=== PATIENT | male | born 1955 | race Caucasian/White ===

== ENCOUNTER 2016-12-29 18:44 | Emergency (ER) | payer MEDICARE, MEDICAID ==
[~2016-12-29] VITALS: Ht 185.4 cm; Wt 81.1 kg
[~2016-12-29 18:44] MED LIST: DIPH25TA52 PO
[2016-12-29] MEDS ORDERED: ONDANSETRON ODT 4 MG ONE (19:18)
[2016-12-29] MEDS ORDERED: LORazepam 1MG TABLET ONE ×2 (19:18→20:02)
[2016-12-29] MEDS ORDERED: LORazepam 1MG TABLET PO ONE ×2 (19:30→20:00)
[2016-12-29] MEDS ORDERED: ONDANSETRON ODT 4 MG PO ONE (19:30)
[2016-12-29 19:32] LABS: HEMATOCRIT 42.7 % (39.2-51.8); HEMOGLOBIN 14.9 g/dL (13.7-18.0); WHITE BLOOD COUNT 6.1 x10^3/uL (3.4-10)
[2016-12-29 19:39] LABS: ASPARTATE AMINO TRANSFERASE 293 U/L (15-37); BLOOD UREA NITROGEN 12 mg/dL (7-18)
[2016-12-29 20:33] VITALS: BP 130/77
== END 2016-12-29 20:36 | disposition home or self-care (01) ==
LOC: ED 20:27
DX: F10.239 Alcohol dependence with withdrawal, unspecified (principal); K70.10 Alcoholic hepatitis without ascites; F19.20 Other psychoactive substance dependence, uncomplicated; B18.2 Chronic viral hepatitis C
CPT/HCPCS: 36415; 80053; 80307; 85025; 99284; Q0162; G0479

== ENCOUNTER 2017-01-19 17:06 | Emergency (ER) | payer MEDICARE, MEDICAID ==
[2017-01-19] MEDS ORDERED: SODIUM CHLORIDE FLUSH 10ML SYR IVF ONE (18:30)
[2017-01-19 19:07] LABS: BLOOD UREA NITROGEN 10 mg/dL (7-18)
[2017-01-19 19:08] LABS: HEMATOCRIT 44.3 % (39.2-51.8); HEMOGLOBIN 15.2 g/dL (13.7-18.0); WHITE BLOOD COUNT 5.2 x10^3/uL (3.4-10)
[2017-01-19 19:12] LABS: ASPARTATE AMINO TRANSFERASE 225 U/L (15-37)
[2017-01-19] MEDS ORDERED: LORazepam 2 MG/ML, 1ML ONE (19:15)
[2017-01-19] MEDS ORDERED: LORazepam 2 MG/ML, 1ML IM ONE (20:00)
[2017-01-19 20:45] VITALS: BP 147/89
== END 2017-01-19 21:16 | disposition home or self-care (01) ==
LOC: ED 17:25
DX: F10.220 Alcohol dependence with intoxication, uncomplicated (principal); G89.29 Other chronic pain; R10.9 Unspecified abdominal pain
CPT/HCPCS: 36415; 74020; 80053; 83690; 85025; 85610; 96372; 99285; J2060

== ENCOUNTER 2017-09-05 01:00 | Emergency (ER) | payer MEDICARE, MEDICAID ==
[~2017-09-05] VITALS: Ht 188 cm; Wt 90.0 kg
[2017-09-05 03:01] VITALS: BP 146/90
== END 2017-09-05 03:03 | disposition home or self-care (01) ==
LOC: ED 01:35
DX: F10.229 Alcohol dependence with intoxication, unspecified (principal); Z00.00 Encounter for general adult medical examination without abnormal findings
CPT/HCPCS: 99283

== ENCOUNTER 2017-09-05 17:25 | Emergency (ER) | payer MEDICARE, MEDICAID ==
[~2017-09-05] VITALS: Ht 185.4 cm; Wt 78.0 kg
[2017-09-05] MEDS ORDERED: THIAMINE 100MG TABLET PO ONE (18:00)
[2017-09-05 18:37] LABS: ALANINE AMINOTRANSFERASE 84 U/L (12-78); ALBUMIN 3.1 g/dL (3.4-5.0); ANION GAP 8 mmol/L (5-15); CALCIUM 8.1 mg/dL (8.5-10.1); CHLORIDE 104 mmol/L (98-107); CREATININE 0.79 mg/dL (0.7-1.3)
[2017-09-05 18:42] LABS: ALKALINE PHOSPHATASE 155 U/L (45-117); BILIRUBIN,TOTAL 2.7 mg/dL (0.2-1.0); TOTAL PROTEIN 7.7 g/dL (6.4-8.2)
[2017-09-05 19:07] LABS: BASOPHILS # (AUTO) 0.01 x10^3/uL (0-0.1); BASOPHILS % (AUTO) 0 % (0-1); EOSINOPHILS # (AUTO) 0.03 x10^3/uL (0-0.4); EOSINOPHILS % (AUTO) 1 % (1-7); LYMPHOCYTES # (AUTO) 0.86 x10^3/uL (1-3.4); LYMPHOCYTES % (AUTO) 29 % (22-44); MD SCAN; MEAN CORPUSCULAR HEMOGLOBIN 27.8 pg (27.5-34.5); MEAN CORPUSCULAR HGB CONC 33.9 g/dL (33.2-36.2); MEAN CORPUSCULAR VOLUME 81.8 fL (81-97); MEAN PLATELET VOLUME 7.4 fL (7.4-10.4); MONOCYTES # (AUTO) 0.19 x10^3/uL (0.2-0.8); MONOCYTES % (AUTO) 6 % (2-9); NEUTROPHILS # (AUTO) 1.87 x10^3/uL (1.8-6.8); NEUTROPHILS % (AUTO) 63 % (42-75); PLATELET COUNT 56 x10^3/uL (130-400); RED CELL DISTRIBUTION WIDTH 18.3 % (9.4-14.8)
[2017-09-05 19:15] LABS: HEMOGRAM NOTE RECHECKED
[2017-09-05 21:24] VITALS: BP 110/67
== END 2017-09-05 21:27 | disposition home or self-care (01) ==
LOC: ED 19:00
DX: F10.120 Alcohol abuse with intoxication, uncomplicated (principal)
CPT/HCPCS: 36415; 80053; 80307; 85025; 99284

== ENCOUNTER 2018-09-27 11:07 | Inpatient (IN) | payer MEDICARE, MEDICAID ==
[~2018-09-27] VITALS: Ht 193 cm; Wt 80.8 kg
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
--- NOTE | 2018-09-27 11:45 | NUR ---
PA AT BEDSIDE.
[2018-09-27] MEDS ORDERED: SODIUM CHLORIDE FLUSH 10ML SYR IVF ONE (12:00)
--- NOTE | 2018-09-27 12:15 | NUR ---
EKG DONE AND PRESESNTED TO MD Seymour
--- NOTE | 2018-09-27 12:15 | NUR ---
REPORT GIVEN TO NIKHIL BELLAMY
[2018-09-27 12:21] LABS: MEAN CORPUSCULAR HEMOGLOBIN 30.5 pg (27.5-34.5); MEAN CORPUSCULAR HGB CONC 33.5 g/dL (33.2-36.2); MEAN CORPUSCULAR VOLUME 91.1 fL (81-97); RED BLOOD COUNT 4.32 x10^6/uL (4.38-5.82); RED CELL DISTRIBUTION WIDTH 16.8 % (9.4-14.8)
--- NOTE | 2018-09-27 12:23 | NUR ---
REPORT FROM VITOR RN, ASSUME CARE OF PT AT THIS TIME. PT SLEEPING BUT AROUSABLE TO VOICE. PT REQUESTING LIGHTS DOWN AND HOB UP, BOTH REQUESTS DONE. PT CONVERSIVE AND APPROPRIATE BUT VERY DROWSY. PT UPDATED ON POC, INCLUDING NO GETTING OOB D/T DROWSINESS AND HIGH FALL RISK. CALL LIGHT WITHIN REACH.
[2018-09-27 12:27] LABS: INTERNATIONAL NORMALIZED RATIO 1.17 (0.93-1.1); PROTHROMBIN TIME 12.2 Seconds (9.6-11.5)
[2018-09-27 12:30] LABS: ALANINE AMINOTRANSFERASE 79 U/L (12-78); ALBUMIN 2.7 g/dL (3.4-5.0); ANION GAP 5 mmol/L (5-15); CALCIUM 8.6 mg/dL (8.5-10.1); CHLORIDE 107 mmol/L (98-107); CREATININE 0.81 mg/dL (0.7-1.3)
[2018-09-27 12:32] LABS: ALKALINE PHOSPHATASE 138 U/L (45-117); BILIRUBIN,TOTAL 1.1 mg/dL (0.2-1.0); TOTAL PROTEIN 6.9 g/dL (6.4-8.2)
--- NOTE | 2018-09-27 12:49 | NUR ---
PT TO CT.
[2018-09-27] MEDS ORDERED: RISP1TAB3 PO (12:57)
[2018-09-27] MEDS ORDERED: MULT1TAB85 PO (12:57)
[2018-09-27] MEDS ORDERED: FOLI-17 PO (12:57)
[2018-09-27] MEDS ORDERED: TRAZ50TA66 PO (12:57)
[2018-09-27] MEDS ORDERED: HYDR-3622 PO (12:57)
[2018-09-27] MEDS ORDERED: LACT10SO28 PO (12:57)
[2018-09-27] MEDS ORDERED: DIAZ10TA4 PO (12:57)
[2018-09-27] MEDS ORDERED: MAGN2400 PO (12:57)
[2018-09-27] MEDS ORDERED: NICO-487 TD (12:57)
[2018-09-27] MEDS ORDERED: CLON0.1T22 PO (13:03)
[2018-09-27] MEDS ORDERED: THIA100T67 PO (13:03)
[2018-09-27 13:36] LABS: MD YES
[2018-09-27 13:37] LABS: BASOS#(MANUAL) 0.03 x10^3/uL (0-0.1); BASOS% (MANUAL) 1 % (0-1); EOS#(MANUAL) 0.05 x10^3/uL (0.0-0.4); EOS% (MANUAL) 2 % (1-7); LYMPH#(MANUAL) 0.76 x10^3/uL (1-3.4); LYMPHS% (MANUAL) 28 % (22-44); MONOS#(MANUAL) 0.35 x10^3/uL (0.3-2.7); MONOS% (MANUAL) 13 % (2-9); SEG#(MANUAL) 1.51 x10^3/uL (1.8-6.8); SEGS% (MANUAL) 56 % (42-75)
--- NOTE | 2018-09-27 13:39 | NUR ---
ALL RESULTS EXCEPT UA-PT STATES CAN'T PROVIDE UA-WANTS TO GO HOME.
[2018-09-27 13:40] LABS: <PLATELET ESTIMATE> DECREASED; <PLT MORPHOLOGY> NORMAL PLT MORPH; <RBC MORPHOLOGY> NORMAL; MEAN PLATELET VOLUME 7.1 fL (7.4-10.4); PLATELET COUNT 77 x10^3/uL (130-400)
--- NOTE | 2018-09-27 14:12 | NUR ---
PT OOB, WANDERING IN [place]. PT ASSISTED BACK TO ROOM. URINE COLLECTED/SENT TO LAB. PT ADVISED OF ADMIT ORDER. PT PLACED BACK ON HEART MONITOR, BP CUFF, PULSE OX. WARM BLANKET PROVIDED, CALL LIGHT WITHIN REACH. PT BACK TO SLEEP.
[2018-09-27 14:22] LABS: MICROSCOPIC NOT IND
[2018-09-27] MEDS ORDERED: SODIUM CHLORIDE FLUSH 10ML SYR IVF PRN (14:30)
[2018-09-27 14:37] LABS: CULTURE INDICATED? NO
[2018-09-27] MEDS ORDERED: NS + 20MEQ KCL 1,000 ML IV SCH (14:45)
[2018-09-27] MEDS ORDERED: LORazepam 2 MG/ML, 1ML IV PRN ×5 (15:00)
[2018-09-27] MEDS ORDERED: FOLIC ACID 5 MG/ML IM ONE (15:00)
[2018-09-27] MEDS ORDERED: LORazepam 0.5MG TABLET PO PRN (15:00)
[2018-09-27] MEDS ORDERED: hydrALAzine 20 MG/ML, 1ML IVPush PRN (15:00)
[2018-09-27] MEDS ORDERED: ONDANSETRON 2MG/ML, 2ML IVPush PRN (15:00)
[2018-09-27] MEDS ORDERED: OXYcodone IR 5MG TABLET PO PRN (15:00)
[2018-09-27] MEDS ORDERED: LORazepam 1MG TABLET PO PRN ×4 (15:00)
[2018-09-27] MEDS ORDERED: ACETAMINOPHEN 325 MG TABLET PO PRN (15:00)
[2018-09-27] MEDS ORDERED: SODIUM CHLORIDE 0.9% 1,000ML IVBOLUS ONE (15:00)
[2018-09-27] MEDS ORDERED: THIAMINE 200 MG in DEXTROSE 5% 50 ML IVPB ONE (15:00)
--- NOTE | 2018-09-27 15:38 | NUR ---
US AT BS, TRANSPORT DELAYED.
--- NOTE | 2018-09-27 15:53 | NUR ---
US COMPLETED, PAGE FOR TRANSPORT MADE.
[2018-09-27] MEDS ORDERED: LACTULOSE 20 GM/30 ML UDC PO SCH (16:00)
[2018-09-27 16:30] VITALS: BP 116/74
[2018-09-27 19:00] LABS: AMPHETAMINE SCREEN, URINE Negative (Negative); BARBITURATE SCREEN, URINE Negative (Negative); BENZODIAZEPINE SCREEN, URINE Positive (Negative); CANNABINOID SCREEN, URINE Negative (Negative); COCAINE SCREEN, URINE Negative (Negative); METHADONE SCREEN, URINE Negative (Negative); OPIATE SCREEN, URINE Positive (Negative)
[2018-09-27] MEDS ORDERED: FOLIC ACID 1 MG TABLET PO ONE (19:00)
[2018-09-27] MEDS ORDERED: THIAMINE 100MG TABLET PO ONE (19:00)
[2018-09-27 19:07] VITALS: BP 148/93
== END 2018-09-27 19:55 | disposition left against medical advice (07) | DRG 432 ==
LOC: ED 12:56 → EDIP 14:45 → 4EST 16:09
PROVIDERS: ADMIT Hospitalist; ATTEND Hospitalist
DX: K70.40 Alcoholic hepatic failure without coma (principal); G92 Toxic encephalopathy; B19.10 Unspecified viral hepatitis B without hepatic coma; D61.818 Other pancytopenia; D68.4 Acquired coagulation factor deficiency; F10.239 Alcohol dependence with withdrawal, unspecified; E44.1 Mild protein-calorie malnutrition; K70.30 Alcoholic cirrhosis of liver without ascites; Z53.21 Procedure and treatment not carried out due to patient leaving prior to being seen by health care provider; B19.20 Unspecified viral hepatitis C without hepatic coma; Z87.891 Personal history of nicotine dependence
CPT/HCPCS: 36415; 70450; 71045; 76700; 80053; 80307; 81003; 82140; 82962; 83605; 83690; 83735; 85025; 85610; 85730; 93005; 99285; G0378; J7030

== ENCOUNTER 2018-10-18 11:33 | Emergency (ER) | payer MEDICARE, MEDICAID ==
[~2018-10-18] VITALS: Ht 185.4 cm; Wt 84.1 kg
[2018-10-18 13:43] VITALS: BP 128/92
== END 2018-10-18 14:35 | disposition home or self-care (01) ==
LOC: ED 14:12
DX: N30.00 Acute cystitis without hematuria (principal); Z72.9 Problem related to lifestyle, unspecified; Z86.19 Personal history of other infectious and parasitic diseases; F10.20 Alcohol dependence, uncomplicated; F12.20 Cannabis dependence, uncomplicated; F15.20 Other stimulant dependence, uncomplicated; R51 Headache
CPT/HCPCS: 36415; 70450; 71045; 80053; 80307; 81001; 83690; 85025; 85610; 85730; 87086; 93005; 96374; 99284; J2060

== ENCOUNTER 2018-11-28 18:50 | Inpatient (IN) | payer MEDICARE, MEDICAID ==
[~2018-11-28] VITALS: Ht 185.4 cm; Wt 81.9 kg
[~2018-11-28 18:50] MED LIST changes: +CLON0.1T22 PO; +DIAZ10TA4 PO; +FOLI-17 PO; +HYDR-3622 PO; +LACT10SO28 PO; +MAGN2400 PO; +MULT1TAB85 PO; +NICO-487 TD; +RISP1TAB3 PO; +THIA100T67 PO; +TRAZ50TA66 PO
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
--- NOTE | 2018-11-28 20:24 | NUR ---
Breathalyzer 0.0, MD informed. Pt remains aox4 with intermittent confusion, unable to give clear statements for complaint today or timeline of events for this week; recently admitted to facility and discharged. Pt vitals remain stable, denies pain at this time.
[2018-11-28] MEDS ORDERED: SODIUM CHLORIDE FLUSH 10ML SYR IVF ONE (20:30)
[2018-11-28 20:49] LABS: MEAN CORPUSCULAR HEMOGLOBIN 30.9 pg (27.5-34.5); MEAN CORPUSCULAR HGB CONC 33.6 g/dL (33.2-36.2); MEAN CORPUSCULAR VOLUME 91.8 fL (81-97); RED BLOOD COUNT 5.12 x10^6/uL (4.38-5.82); RED CELL DISTRIBUTION WIDTH 16.7 % (9.4-14.8)
--- NOTE | 2018-11-28 20:53 | NUR ---
Hospitalist at bedside, admit orders to be placed. Labs drawn, pending results. Pt denies pain, vitals stable, resting intermitantly with eyes closed, no s/sx of distress noted.
[2018-11-28 20:58] LABS: ALANINE AMINOTRANSFERASE 69 U/L (12-78); ALBUMIN 3.1 g/dL (3.4-5.0); ANION GAP 4 mmol/L (5-15); CALCIUM 9.3 mg/dL (8.5-10.1); CHLORIDE 104 mmol/L (98-107); CREATININE 0.93 mg/dL (0.7-1.3)
[2018-11-28 21:00] LABS: ALKALINE PHOSPHATASE 131 U/L (45-117); BILIRUBIN,TOTAL 2.3 mg/dL (0.2-1.0)
[2018-11-28] MEDS ORDERED: HALOPERIDOL 1 MG TABLET PO PRN (21:00)
[2018-11-28] MEDS ORDERED: hydrALAzine 20 MG/ML, 1ML IVPush PRN (21:00)
[2018-11-28] MEDS: RISPERIDONE 1 MG TABLET PO SCH (21:00)
[2018-11-28 21:11] LABS: BASOPHILS # (AUTO) 0.01 x10^3/uL (0-0.1); BASOPHILS % (AUTO) 0 % (0-1); EOSINOPHILS # (AUTO) 0.11 x10^3/uL (0-0.4); EOSINOPHILS % (AUTO) 2 % (1-7); LYMPHOCYTES # (AUTO) 1.37 x10^3/uL (1-3.4); LYMPHOCYTES % (AUTO) 28 % (22-44); MD SCAN; MEAN PLATELET VOLUME 7.3 fL (7.4-10.4); MONOCYTES # (AUTO) 0.46 x10^3/uL (0.2-0.8); MONOCYTES % (AUTO) 9 % (2-9); NEUTROPHILS # (AUTO) 2.99 x10^3/uL (1.8-6.8); NEUTROPHILS % (AUTO) 60 % (42-75); PLATELET COUNT 91 x10^3/uL (130-400)
--- NOTE | 2018-11-28 22:00 | NUR ---
Report given to recieving RN, pt stable and ready to transfer to floor.
[2018-11-28] MEDS ORDERED: RISPERIDONE 0.5 MG TABLET ONE (22:33)
[2018-11-28] MEDS: LACTULOSE 10 GM/15 ML UDC PO SCH (22:45)
[2018-11-29 00:57] VITALS: BP 135/82
[2018-11-29 06:13] LABS: MEAN CORPUSCULAR HEMOGLOBIN 30.7 pg (27.5-34.5); MEAN CORPUSCULAR HGB CONC 33.9 g/dL (33.2-36.2); MEAN CORPUSCULAR VOLUME 90.7 fL (81-97); RED BLOOD COUNT 5.13 x10^6/uL (4.38-5.82); RED CELL DISTRIBUTION WIDTH 16.8 % (9.4-14.8)
[2018-11-29 06:26] LABS: ALANINE AMINOTRANSFERASE 67 U/L (12-78); ANION GAP 7 mmol/L (5-15); CHLORIDE 105 mmol/L (98-107)
[2018-11-29 06:28] LABS: ALKALINE PHOSPHATASE 129 U/L (45-117); BILIRUBIN,TOTAL 2.3 mg/dL (0.2-1.0); TOTAL PROTEIN 7.6 g/dL (6.4-8.2)
[2018-11-29 06:36] LABS: BASOPHILS # (AUTO) 0.01 x10^3/uL (0-0.1); BASOPHILS % (AUTO) 0 % (0-1); EOSINOPHILS # (AUTO) 0.16 x10^3/uL (0-0.4); EOSINOPHILS % (AUTO) 3 % (1-7); LYMPHOCYTES # (AUTO) 1.68 x10^3/uL (1-3.4); LYMPHOCYTES % (AUTO) 34 % (22-44); MD SCAN; MEAN PLATELET VOLUME 7.4 fL (7.4-10.4); MONOCYTES # (AUTO) 0.47 x10^3/uL (0.2-0.8); MONOCYTES % (AUTO) 9 % (2-9); NEUTROPHILS # (AUTO) 2.64 x10^3/uL (1.8-6.8); NEUTROPHILS % (AUTO) 53 % (42-75); PLATELET COUNT 88 x10^3/uL (130-400)
[2018-11-29 07:20] VITALS: BP 104/68
[2018-11-29] MEDS: RISPERIDONE 1 MG TABLET PO SCH ×2 (09:00→20:21)
[2018-11-29] MEDS ORDERED: RISPERIDONE 2 MG TABLET ONE (09:24)
[2018-11-29] MEDS: LACTULOSE 10 GM/15 ML UDC PO SCH ×3 (09:26→20:21)
[2018-11-29] MEDS: FOLIC ACID 1 MG TABLET PO SCH (09:26)
[2018-11-29] MEDS: THIAMINE 100MG TABLET PO SCH (09:27)
[2018-11-29] MEDS: MULTIVITAMIN 1 TABLET PO SCH (09:27)
[2018-11-29] MEDS: HYDROcodone/APAP 10/325 MG TABLET PO PRN ×3 (09:27→22:09)
[2018-11-29] MEDS: NICOTINE 21 MG/24 HR PATCH.TD24 TD SCH (09:28)
[2018-11-29 15:26] VITALS: BP 102/66
[2018-11-29 18:59] VITALS: BP 102/72
[2018-11-29] MEDS: ONDANSETRON 2MG/ML, 2ML IVPush PRN (20:30)
[2018-11-30 00:23] VITALS: BP 126/80
[2018-11-30] MEDS: HYDROcodone/APAP 10/325 MG TABLET PO PRN ×3 (06:47→22:20)
[2018-11-30 07:37] VITALS: BP 132/78
[2018-11-30] MEDS ORDERED: RISPERIDONE 0.5 MG TABLET ONE ×2 (08:50→20:04)
[2018-11-30] MEDS: MULTIVITAMIN 1 TABLET PO SCH (08:53)
[2018-11-30] MEDS: THIAMINE 100MG TABLET PO SCH (08:53)
[2018-11-30] MEDS: RISPERIDONE 1 MG TABLET PO SCH ×2 (08:53→20:17)
[2018-11-30] MEDS: LACTULOSE 10 GM/15 ML UDC PO SCH ×3 (08:54→20:17)
[2018-11-30] MEDS: FOLIC ACID 1 MG TABLET PO SCH (08:54)
[2018-11-30] MEDS: NICOTINE 21 MG/24 HR PATCH.TD24 TD SCH (08:55)
[2018-11-30 14:45] VITALS: BP 134/78
[2018-11-30] MEDS: ONDANSETRON 2MG/ML, 2ML IVPush PRN (18:12)
[2018-11-30 18:44] VITALS: BP 113/70
[2018-12-01 01:56] VITALS: BP 133/70
[2018-12-01] MEDS ORDERED: RISPERIDONE 0.5 MG TABLET ONE (07:25)
[2018-12-01] MEDS: HYDROcodone/APAP 10/325 MG TABLET PO PRN ×3 (07:34→21:43)
[2018-12-01] MEDS: LACTULOSE 10 GM/15 ML UDC PO SCH ×3 (07:34→20:33)
[2018-12-01] MEDS: FOLIC ACID 1 MG TABLET PO SCH (07:34)
[2018-12-01] MEDS: MULTIVITAMIN 1 TABLET PO SCH (07:34)
[2018-12-01] MEDS: THIAMINE 100MG TABLET PO SCH (07:35)
[2018-12-01] MEDS: NICOTINE 21 MG/24 HR PATCH.TD24 TD SCH ×2 (07:36→07:43)
[2018-12-01] MEDS: RISPERIDONE 1 MG TABLET PO SCH (07:37)
[2018-12-01 08:45] VITALS: BP 117/72
[2018-12-01 13:49] VITALS: BP 145/83
[2018-12-01] MEDS ORDERED: TEMAZEPAM 15 MG CAPSULE PO PRN (14:30)
[2018-12-01 18:39] VITALS: BP 124/78
[2018-12-02 00:10] VITALS: BP 135/80
[2018-12-02] MEDS: FOLIC ACID 1 MG TABLET PO SCH (07:28)
[2018-12-02] MEDS: MULTIVITAMIN 1 TABLET PO SCH (07:28)
[2018-12-02] MEDS: THIAMINE 100MG TABLET PO SCH (07:28)
[2018-12-02] MEDS: ARIPIPRAZOLE 5 MG TABLET PO SCH (07:28)
[2018-12-02] MEDS: HYDROcodone/APAP 10/325 MG TABLET PO PRN ×2 (07:29→13:34)
[2018-12-02] MEDS: LACTULOSE 10 GM/15 ML UDC PO SCH ×3 (07:29→20:37)
[2018-12-02] MEDS: NICOTINE 21 MG/24 HR PATCH.TD24 TD SCH ×2 (07:29→07:39)
[2018-12-02 08:40] VITALS: BP 107/69
[2018-12-02 13:45] VITALS: BP 139/82
[2018-12-02 18:40] VITALS: BP 175/67
[2018-12-02] MEDS: OXYcodone IR 5MG TABLET PO PRN (19:34)
[2018-12-02] MEDS: TRAZODONE 100MG TABLET PO PRN (23:31)
[2018-12-03] MEDS: OXYcodone IR 5MG TABLET PO PRN ×4 (01:44→20:01)
[2018-12-03 02:13] VITALS: BP 138/82
[2018-12-03] MEDS: NICOTINE 21 MG/24 HR PATCH.TD24 TD SCH (07:26)
[2018-12-03 07:42] VITALS: BP 128/72
[2018-12-03] MEDS: ARIPIPRAZOLE 5 MG TABLET PO SCH (07:47)
[2018-12-03] MEDS: THIAMINE 100MG TABLET PO SCH (07:47)
[2018-12-03] MEDS: FOLIC ACID 1 MG TABLET PO SCH (07:48)
[2018-12-03] MEDS: LACTULOSE 10 GM/15 ML UDC PO SCH ×3 (07:48→20:05)
[2018-12-03] MEDS: MULTIVITAMIN 1 TABLET PO SCH (07:48)
[2018-12-03 12:58] VITALS: BP 102/70
[2018-12-03 13:46] VITALS: BP 95/60
[2018-12-03] MEDS: TRAZODONE 100MG TABLET PO PRN ×2 (20:02→22:35)
[2018-12-03 20:25] VITALS: BP 117/70
[2018-12-04 04:00] VITALS: BP 105/54
[2018-12-04 07:23] VITALS: BP 95/56
[2018-12-04] MEDS: NICOTINE 21 MG/24 HR PATCH.TD24 TD SCH ×2 (09:00→09:57)
[2018-12-04] MEDS: ARIPIPRAZOLE 5 MG TABLET PO SCH (09:56)
[2018-12-04] MEDS: FOLIC ACID 1 MG TABLET PO SCH (09:56)
[2018-12-04] MEDS: MULTIVITAMIN 1 TABLET PO SCH (09:56)
[2018-12-04] MEDS: LACTULOSE 10 GM/15 ML UDC PO SCH ×3 (09:56→20:12)
[2018-12-04] MEDS: THIAMINE 100MG TABLET PO SCH (09:56)
[2018-12-04] MEDS: OXYcodone IR 5MG TABLET PO PRN ×3 (10:01→17:03)
[2018-12-04 12:53] VITALS: BP 125/72
[2018-12-04 18:59] VITALS: BP 117/76
[2018-12-04] MEDS: TRAZODONE 100MG TABLET PO PRN (22:05)
[2018-12-05 00:39] VITALS: BP 114/73
[2018-12-05 09:10] VITALS: BP 105/67
[2018-12-05] MEDS: LACTULOSE 10 GM/15 ML UDC PO SCH ×3 (09:12→20:35)
[2018-12-05] MEDS: ARIPIPRAZOLE 5 MG TABLET PO SCH (09:12)
[2018-12-05] MEDS: MULTIVITAMIN 1 TABLET PO SCH (09:12)
[2018-12-05] MEDS: THIAMINE 100MG TABLET PO SCH (09:12)
[2018-12-05] MEDS: FOLIC ACID 1 MG TABLET PO SCH (09:12)
[2018-12-05] MEDS: OXYcodone IR 5MG TABLET PO PRN ×3 (09:12→20:34)
[2018-12-05 14:49] VITALS: BP 106/70
[2018-12-05 19:19] VITALS: BP 114/72
[2018-12-05] MEDS: TRAZODONE 100MG TABLET PO PRN (20:34)
[2018-12-06 00:31] VITALS: BP 109/68
[2018-12-06 07:52] VITALS: BP 96/60
[2018-12-06] MEDS: THIAMINE 100MG TABLET PO SCH (12:09)
[2018-12-06] MEDS: MULTIVITAMIN 1 TABLET PO SCH (12:09)
[2018-12-06] MEDS: LACTULOSE 10 GM/15 ML UDC PO SCH ×3 (12:09→19:49)
[2018-12-06] MEDS: FOLIC ACID 1 MG TABLET PO SCH (12:09)
[2018-12-06] MEDS: ARIPIPRAZOLE 5 MG TABLET PO SCH (12:09)
[2018-12-06] MEDS: OXYcodone IR 5MG TABLET PO PRN ×2 (12:53→21:22)
[2018-12-06 14:01] VITALS: BP 109/63
[2018-12-06 19:20] VITALS: BP 112/68
[2018-12-06] MEDS: TRAZODONE 100MG TABLET PO PRN (19:49)
[2018-12-07 00:32] VITALS: BP 107/63
[2018-12-07 07:36] VITALS: BP 114/66
[2018-12-07] MEDS: THIAMINE 100MG TABLET PO SCH (08:12)
[2018-12-07] MEDS: ARIPIPRAZOLE 5 MG TABLET PO SCH (08:12)
[2018-12-07] MEDS: MULTIVITAMIN 1 TABLET PO SCH (08:12)
[2018-12-07] MEDS: LACTULOSE 10 GM/15 ML UDC PO SCH ×2 (08:12→15:44)
[2018-12-07] MEDS: FOLIC ACID 1 MG TABLET PO SCH (08:13)
[2018-12-07] MEDS: OXYcodone IR 5MG TABLET PO PRN (08:13)
[2018-12-07 13:02] VITALS: BP 100/61
[2018-12-07] MEDS ORDERED: LACT10SO28 PO (16:26)
[2018-12-07] MEDS ORDERED: ARIP5TAB13 PO (16:26)
[2018-12-07] MEDS ORDERED: TRAZ-137 PO (16:26)
== END 2018-12-07 18:34 | disposition home or self-care (01) | DRG 432 ==
LOC: ED 20:38 → EDIP 20:50 → 3N 22:13
PROVIDERS: ADMIT Family Medicine; ATTEND Family Medicine
DX: K70.40 Alcoholic hepatic failure without coma (principal); G93.41 Metabolic encephalopathy; B19.10 Unspecified viral hepatitis B without hepatic coma; D68.4 Acquired coagulation factor deficiency; K70.30 Alcoholic cirrhosis of liver without ascites; B19.20 Unspecified viral hepatitis C without hepatic coma; D72.819 Decreased white blood cell count, unspecified; E83.42 Hypomagnesemia; F10.20 Alcohol dependence, uncomplicated; Y90.9 Presence of alcohol in blood, level not specified; F17.200 Nicotine dependence, unspecified, uncomplicated; F25.9 Schizoaffective disorder, unspecified; H61.22 Impacted cerumen, left ear; I10 Essential (primary) hypertension; Z82.5 Family history of asthma and other chronic lower respiratory diseases; Z80.3 Family history of malignant neoplasm of breast; Z87.820 Personal history of traumatic brain injury; Z53.21 Procedure and treatment not carried out due to patient leaving prior to being seen by health care provider; E11.65 Type 2 diabetes mellitus with hyperglycemia; K80.20 Calculus of gallbladder without cholecystitis without obstruction; Z80.9 Family history of malignant neoplasm, unspecified; Z91.19 Patient's noncompliance with other medical treatment and regimen
CPT/HCPCS: 36415; 80053; 82140; 83735; 84100; 85025; 96374; 99285; G0378; J2405

== ENCOUNTER 2019-05-12 22:45 | Emergency (ER) | payer MEDICAID, MEDICARE ==
[~2019-05-12] VITALS: Ht 185.4 cm; Wt 84.0 kg
[~2019-05-12 22:45] MED LIST changes: +ARIP5TAB13 PO; -MAGN2400 PO; +MAGN24003 PO; +TRAZ-175 PO
[2019-05-12] MEDS ORDERED: ZIPRASIDONE 20MG CAPSULE PO SCH (23:30)
[2019-05-12 23:33] VITALS: BP 110/83
[2019-05-12 23:47] LABS: BASOPHILS # (AUTO) 0.02 x10^3/uL (0-0.1); BASOPHILS % (AUTO) 0 % (0-1); EOSINOPHILS # (AUTO) 0.07 x10^3/uL (0-0.4); EOSINOPHILS % (AUTO) 1 % (1-7); LYMPHOCYTES # (AUTO) 1.37 x10^3/uL (1-3.4); LYMPHOCYTES % (AUTO) 26 % (22-44); MD NO; MEAN CORPUSCULAR HEMOGLOBIN 31.7 pg (27.5-34.5); MEAN CORPUSCULAR HGB CONC 34.2 g/dL (33.2-36.2); MEAN CORPUSCULAR VOLUME 92.7 fL (81-97); MEAN PLATELET VOLUME 7.4 fL (7.4-10.4); MONOCYTES # (AUTO) 0.47 x10^3/uL (0.2-0.8); MONOCYTES % (AUTO) 9 % (2-9); NEUTROPHILS # (AUTO) 3.41 x10^3/uL (1.8-6.8); NEUTROPHILS % (AUTO) 64 % (42-75); PLATELET COUNT 110 x10^3/uL (130-400); RED BLOOD COUNT 4.89 x10^6/uL (4.38-5.82); RED CELL DISTRIBUTION WIDTH 15.7 % (9.4-14.8)
--- NOTE | 2019-05-12 23:55 | NUR ---
Pt came out of room dressed carrying his duffelbag stating he was leaving. When asked to go back to his room pt stood in the hallway continuing to perseverate over the MD walking out of the room during his exam. Pt was eventually cleared by MD to leave and was directed to the ER lobby.
[2019-05-13] LABS: ALANINE AMINOTRANSFERASE 70 U/L (12-78); ALBUMIN 3.1 g/dL (3.4-5.0); ANION GAP 7 mmol/L (5-15); CALCIUM 8.9 mg/dL (8.5-10.1); CHLORIDE 107 mmol/L (98-107)
[2019-05-13 00:01] LABS: SALICYLATE LEVEL < 1.7 mg/dL (2.8-20.0)
[2019-05-13 00:02] LABS: ALKALINE PHOSPHATASE 178 U/L (45-117); BILIRUBIN,TOTAL 1.5 mg/dL (0.2-1.0); TOTAL PROTEIN 8.2 g/dL (6.4-8.2)
== END 2019-05-13 00:10 | disposition home or self-care (01) ==
LOC: ED 05-13 00:04
DX: F41.9 Anxiety disorder, unspecified (principal); F32.9 Major depressive disorder, single episode, unspecified
CPT/HCPCS: 36415; 80053; 80307; 82140; 85025; 99283

== ENCOUNTER 2019-06-04 17:12 | Emergency (ER) | payer MEDICARE ==
[~2019-06-04] VITALS: Ht 185.4 cm; Wt 82.0 kg
[2019-06-04 17:47] LABS: BASOPHILS # (AUTO) 0.02 x10^3/uL (0-0.1); BASOPHILS % (AUTO) 0 % (0-1); EOSINOPHILS % (AUTO) 3 % (1-7); LYMPHOCYTES # (AUTO) 1.01 x10^3/uL (1-3.4); LYMPHOCYTES % (AUTO) 26 % (22-44); MD NO; MEAN CORPUSCULAR HEMOGLOBIN 31.8 pg (27.5-34.5); MEAN CORPUSCULAR HGB CONC 34.1 g/dL (33.2-36.2); MEAN CORPUSCULAR VOLUME 93.5 fL (81-97); MEAN PLATELET VOLUME 7.3 fL (7.4-10.4); MONOCYTES # (AUTO) 0.27 x10^3/uL (0.2-0.8); MONOCYTES % (AUTO) 7 % (2-9); NEUTROPHILS # (AUTO) 2.44 x10^3/uL (1.8-6.8); NEUTROPHILS % (AUTO) 64 % (42-75); PLATELET COUNT 100 x10^3/uL (130-400); RED BLOOD COUNT 4.72 x10^6/uL (4.38-5.82); RED CELL DISTRIBUTION WIDTH 15.5 % (9.4-14.8)
[2019-06-04 17:57] LABS: INTERNATIONAL NORMALIZED RATIO 1.13 (0.93-1.1)
[2019-06-04 17:58] LABS: ALANINE AMINOTRANSFERASE 103 U/L (12-78); ALBUMIN 2.5 g/dL (3.4-5.0); ANION GAP 7 mmol/L (5-15); CALCIUM 8.6 mg/dL (8.5-10.1); CHLORIDE 107 mmol/L (98-107); CREATININE 0.78 mg/dL (0.7-1.3)
[2019-06-04 18:00] LABS: ALKALINE PHOSPHATASE 144 U/L (45-117); BILIRUBIN,TOTAL 1.2 mg/dL (0.2-1.0); TOTAL PROTEIN 7.4 g/dL (6.4-8.2)
--- NOTE | 2019-06-04 18:03 | NUR ---
PT UPRIGHT ON GURNEY WITH EYES CLOSED, RESPONDS APPROP TO STAFF, NAD- ABLE TO DOZE OFF, COMFORT MEASURES PROVIDED, [facility] STAFF AT , CALL LIGHT WITHIN REACH.
[2019-06-04 18:04] VITALS: BP 127/80
--- NOTE | 2019-06-04 18:45 | NUR ---
Patient & H staff given discharge instructions and Rx, they have confirmed that they understand the instructions. Patient ambulatory with steady gait.
== END 2019-06-04 18:46 | disposition home or self-care (01) ==
LOC: ED 18:40
DX: K72.90 Hepatic failure, unspecified without coma (principal); E72.20 Disorder of urea cycle metabolism, unspecified; Z98.890 Other specified postprocedural states
CPT/HCPCS: 36415; 80053; 82140; 83690; 85025; 85610; 85730; 99283

== ENCOUNTER 2019-07-18 15:49 | Emergency (ER) | payer MEDICAID, MEDICARE ==
[~2019-07-18] VITALS: Ht 185.4 cm; Wt 85.0 kg
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
[2019-07-18 17:07] VITALS: BP 124/75
--- NOTE | 2019-07-18 17:09 | NUR ---
PT BACK FROM IMAGING, RESTING COMFORTABLY ON GURNEY. VSS. NAD NOTED
[2019-07-18] MEDS ORDERED: OXYcodone/APAP 5/325MG TABLET PO ONE (17:30)
[2019-07-18] MEDS ORDERED: OXYcodone/APAP 5/325MG TABLET ONE (17:39)
== END 2019-07-18 18:23 | disposition home or self-care (01) ==
LOC: ED 17:06
DX: S20.212A Contusion of left front wall of thorax, initial encounter (principal); R07.89 Other chest pain; W18.39XA Other fall on same level, initial encounter; Y93.55 Activity, bike riding; Y92.488 Other paved roadways as the place of occurrence of the external cause; Y99.8 Other external cause status
CPT/HCPCS: 93005; 99283

== ENCOUNTER 2019-11-22 10:32 | Emergency (ER) | payer MEDICAID, MEDICARE ==
[~2019-11-22] VITALS: Ht 185.4 cm; Wt 79.5 kg
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
--- NOTE | 2019-11-22 11:01 | NUR ---
REPORT GIVEN TO MIA SCOTT.
[2019-11-22 11:11] LABS: BASOPHILS # (AUTO) 0.01 x10^3/uL (0-0.1); BASOPHILS % (AUTO) 0 % (0-1); EOSINOPHILS # (AUTO) 0.11 x10^3/uL (0-0.4); EOSINOPHILS % (AUTO) 3 % (1-7); LYMPHOCYTES # (AUTO) 1.06 x10^3/uL (1-3.4); LYMPHOCYTES % (AUTO) 29 % (22-44); MD NO; MEAN CORPUSCULAR HEMOGLOBIN 31.4 pg (27.5-34.5); MEAN CORPUSCULAR HGB CONC 32.8 g/dL (33.2-36.2); MEAN CORPUSCULAR VOLUME 95.7 fL (81-97); MEAN PLATELET VOLUME 7.2 fL (7.4-10.4); MONOCYTES # (AUTO) 0.39 x10^3/uL (0.2-0.8); MONOCYTES % (AUTO) 11 % (2-9); NEUTROPHILS # (AUTO) 2.09 x10^3/uL (1.8-6.8); NEUTROPHILS % (AUTO) 57 % (42-75); PLATELET COUNT 103 x10^3/uL (130-400); RED BLOOD COUNT 4.35 x10^6/uL (4.38-5.82); RED CELL DISTRIBUTION WIDTH 15.2 % (9.4-14.8)
--- NOTE | 2019-11-22 11:17 | NUR ---
REPORT RECEIVED FROM CEZAR BELLAMY.
[2019-11-22 11:21] LABS: INTERNATIONAL NORMALIZED RATIO 1.14 (0.93-1.1); PROTHROMBIN TIME 11.8 Seconds (9.6-11.5)
[2019-11-22 11:22] LABS: ALBUMIN 2.8 g/dL (3.4-5.0); ANION GAP 6 mmol/L (5-15); CALCIUM 8.7 mg/dL (8.5-10.1); CHLORIDE 110 mmol/L (98-107); CREATININE 0.53 mg/dL (0.7-1.3)
[2019-11-22 11:28] LABS: ALANINE AMINOTRANSFERASE 87 U/L (12-78); ALKALINE PHOSPHATASE 177 U/L (45-117); BILIRUBIN,TOTAL 0.8 mg/dL (0.2-1.0)
[2019-11-22 11:34] VITALS: BP 119/73
== END 2019-11-22 12:33 | disposition home or self-care (01) ==
LOC: ED 10:57
DX: R42 Dizziness and giddiness (principal); M79.10 Myalgia, unspecified site; R51 Headache; I51.7 Cardiomegaly
CPT/HCPCS: 36415; 80053; 80307; 82140; 85025; 85610; 85730; 93005; 99284